=== PATIENT | female | born 1975 | race African-American/Black ===

== ENCOUNTER 2025-09-04 13:04 | Emergency (ER) | payer MEDICARE, MEDICAID ==
[2025-09-04 13:43] LABS: #Basophils Less than 0.03 10x3/uL (0.0-0.2); #Eosinophils 0.12 10x3/uL (0.0-0.7); #Monocytes 0.43 10x3/uL (0.11-0.59); #Neutrophils 4.39 10x3/uL (1.40-6.50); %Basophils 0.3 % (0.0-1.0); %Eosinophils 1.8 % (0.0-10.0); %Lymphocytes 25.4 % (21.0-51.0); %Monocytes 6.4 % (0.0-10.0); %Neutrophils 65.8 % (42.0-75.0); Hematocrit 34.9 % (36.0-47.0); Hemoglobin 11.2 g/dL (12.0-16.0); Mean Corpuscular Hemoglobin 27.3 pg (27.0-31.0); Mean Corpuscular Volume 85.1 fL (78.0-98.0); Platelet Count 273 10x3/uL (130-400); Red Blood Cell (RBC) Count 4.10 mill/uL (4.20-5.40); White Blood Cell (WBC) Count 6.68 10x3/uL (4.8-10.8)
[2025-09-04 13:59] LABS: ALT (SGPT) 12 U/L (Less than 34); AST (SGOT) 17 U/L (11-34); Albumin 3.3 g/dL (3.1-4.5); Alkaline Phosphatase 70 U/L (40-110); Anion Gap 14 mmol/L (10-20); BUN (Urea Nitrogen) 8 mg/dL (7.0-18.7); Bilirubin, Total 0.2 mg/dL (0.3-1.2); Calc. Creatinine Clearance 0 mL/min (70-130); Calcium 8.8 mg/dL (7.8-10.44); Carbon Dioxide 24 mmol/L (22-29); Chloride 106 mmol/L (98-107); Globulin 4.3 g/dL (2.4-3.5); Glucose 141 mg/dL (70-105); Potassium 3.7 mmol/L (3.5-5.1); Sodium 140 mmol/L (136-145)
== END 2025-09-04 14:47 | disposition home or self-care (01) ==
LOC: ERS 13:04
DX: R60.9 Edema, unspecified (principal); I10 Essential (primary) hypertension; E11.9 Type 2 diabetes mellitus without complications; E05.90 Thyrotoxicosis, unspecified without thyrotoxic crisis or storm; Z79.84 Long term (current) use of oral hypoglycemic drugs; Z79.82 Long term (current) use of aspirin; Z79.899 Other long term (current) drug therapy
CPT/HCPCS: 71045; 80053; 83880; 84484; 85025; 93005; 94760

== ENCOUNTER 2025-09-10 16:24 | Observation (INO) | payer MEDICARE, MEDICAID ==
[~2025-09-10 16:24] MED LIST: Iopamidol-370 76% 500 ML MDV (1 ML CHARGE) ONE
[2025-09-10 17:36] LABS: #Basophils 0.04 10x3/uL (0.0-0.2); #Eosinophils 0.08 10x3/uL (0.0-0.7); #Monocytes 0.51 10x3/uL (0.11-0.59); #Neutrophils 4.51 10x3/uL (1.40-6.50); %Basophils 0.6 % (0.0-1.0); %Eosinophils 1.2 % (0.0-10.0); %Lymphocytes 25.9 % (21.0-51.0); %Monocytes 7.3 % (0.0-10.0); %Neutrophils 64.9 % (42.0-75.0); Hematocrit 37.5 % (36.0-47.0); Hemoglobin 12.1 g/dL (12.0-16.0); Mean Corpuscular Hemoglobin 28.0 pg (27.0-31.0); Mean Corpuscular Volume 86.8 fL (78.0-98.0); Platelet Count 316 10x3/uL (130-400); Red Blood Cell (RBC) Count 4.32 mill/uL (4.20-5.40); White Blood Cell (WBC) Count 6.95 10x3/uL (4.8-10.8)
[2025-09-10] MEDS ORDERED: Metoclopramide HCl 10 MG (2 mL) VIAL ONE (17:36)
[2025-09-10 17:56] LABS: ALT (SGPT) 8 U/L (Less than 34); AST (SGOT) 18 U/L (11-34); Albumin 3.7 g/dL (3.1-4.5); Alkaline Phosphatase 65 U/L (40-110); Anion Gap 13 mmol/L (10-20); BUN (Urea Nitrogen) 10 mg/dL (7.0-18.7); Bilirubin, Total 0.2 mg/dL (0.3-1.2); Calc. Creatinine Clearance 0 mL/min (70-130); Calcium 9.6 mg/dL (7.8-10.44); Carbon Dioxide 27 mmol/L (22-29); Chloride 99 mmol/L (98-107); Globulin 4.7 g/dL (2.4-3.5); Glucose 110 mg/dL (70-105); Lipase 12 U/L (8-78); Potassium 3.1 mmol/L (3.5-5.1); Sodium 136 mmol/L (136-145)
[2025-09-10 17:59] LABS: BHCG - Serum Negative (NEGATIVE); Pregs Control Background? CLEAR/WHITE (CLR/WHITE); Pregs Control Bar Appear? YES (CONTROL BAR)
[2025-09-10 20:36] LABS: Glucose, Urine (Dipstick) Normal (Negative); Leukocyte 75 Leu/uL (Negative); Protein, Urine (Dipstick) Negative (Neg-Trace); RBC/HPF 0-3 HPF (0-3)
[2025-09-10 20:38] LABS: Bacteria/HPF 1+ HPF (None Seen); Specific Gravity, Urine Greater than 1.036 (1.002-1.036)
[2025-09-10] MEDS ORDERED: Ondansetron PF 4 MG/2 ML Vial IVP PRN (23:00)
[2025-09-10] MEDS ORDERED: Glucagon 1 MG/ML KIT IM PRN ×2 (23:51→23:52)
[2025-09-10] MEDS ORDERED: Dextrose 50% Abboject 50 ML SYRINGE SLOW IVP PRN ×2 (23:51→23:52)
[2025-09-10] MEDS ORDERED: Calcium Carbonate 500 MG ChewTAB PO PRN (23:51)
[2025-09-10] MEDS ORDERED: Senokot S 8.6-50 MG TAB PO PRN (23:51)
[2025-09-11] MEDS ORDERED: Albuterol 2.5 MG (3 mL) NEB NEB PRN
[2025-09-11 02:17] VITALS: BMI 47.8
[2025-09-11] MEDS: Lidocaine 2% Viscous Solution 10 ML, Aluminum & Magnesium Hydroxide 30 ML SSW SCH (02:41)
[2025-09-11] MEDS: Acetaminophen 325 MG TAB PO PRN (05:47)
[2025-09-11 06:31] LABS: Anion Gap 12 mmol/L (10-20); BUN (Urea Nitrogen) 12 mg/dL (7.0-18.7); Calc. Creatinine Clearance 189 mL/min (70-130); Calcium 9.1 mg/dL (7.8-10.44); Carbon Dioxide 28 mmol/L (22-29); Chloride 102 mmol/L (98-107); Glucose 90 mg/dL (70-105); Potassium 3.9 mmol/L (3.5-5.1); Sodium 138 mmol/L (136-145)
[2025-09-11 06:32] LABS: CRP, High Sensitivity at Bryan 0.44 mg/dL (< or = 0.5); Cardiac Risk 2.7 (Less than 4.5); Cholesterol 117 mg/dl (< 200 Desired); HDL Cholesterol 44 mg/dL (>60 Neg Risk); LDL Cholesterol, Calculated 62 mg/dL; Magnesium 1.9 mg/dL (1.6-2.6); Triglycerides 53 mg/dL (Less than 150)
[2025-09-11 06:52] LABS: Free T4 (Free Thyroxine) 1.07 ng/dL (0.70-1.48)
[2025-09-11] MEDS: Carvedilol 25 MG TAB PO SCH (08:29)
[2025-09-11] MEDS: Losartan 25 MG TAB PO SCH (08:29)
[2025-09-11] MEDS: Pantoprazole 40 MG DR.TAB PO SCH (08:29)
[2025-09-11] MEDS: Enoxaparin 60 MG (0.6 mL) SYRINGE SC SCH (08:29)
[2025-09-11] MEDS: NIFEdipine XL 30 MG ER.TAB PO SCH (08:30)
[2025-09-11 16:25] VITALS: BP 137/84; TEMP 97.4
[2025-09-11] MEDS ORDERED: Enoxaparin 40 MG (0.4 mL) SYRINGE SC SCH (21:00)
[2025-09-14] MEDS ORDERED: FLU (Fluarix Triv) 25-26 (6MOS UP)/PF 45 MCG/0.5 ML Syringe IM ONE (09:00)
== END 2025-09-11 16:20 | disposition home or self-care (01) ==
LOC: ERS 16:24 → ERHOLD 22:48 → OBS 09-11 01:18
PROVIDERS: ADMIT Internal Medicine; ATTEND Internal Medicine
DX: R07.89 Other chest pain (principal); R53.1 Weakness; I10 Essential (primary) hypertension; E11.9 Type 2 diabetes mellitus without complications; E87.6 Hypokalemia; E78.5 Hyperlipidemia, unspecified; J45.20 Mild intermittent asthma, uncomplicated; K76.0 Fatty (change of) liver, not elsewhere classified; I31.39 Other pericardial effusion (noninflammatory); R82.71 Bacteriuria; F41.9 Anxiety disorder, unspecified; F31.9 Bipolar disorder, unspecified; Z88.5 Allergy status to narcotic agent; Z79.82 Long term (current) use of aspirin; Z79.890 Hormone replacement therapy; Z79.84 Long term (current) use of oral hypoglycemic drugs; Z79.1 Long term (current) use of non-steroidal anti-inflammatories (NSAID); Z79.899 Other long term (current) drug therapy
CPT/HCPCS: 71045; 74177; 76705; 80048; 80053; 80061; 81001; 82962; 83690; 83735; 83880; 84439; 84443; 84484 ×3; 84703; 85025; 86141; 87428; 93005; 96365; 96375; 99285; J1650; J2543; J2765; 36415; 36416; 96372; G0378; J1815; Q9967